=== PATIENT | female | born 1970 | race Caucasian/White ===

== ENCOUNTER 2017-01-08 08:12 | Emergency (ER) | payer BC ==
[~2017-01-08] VITALS: Ht 160 cm; Wt 144.3 kg
[2017-01-08] MEDS ORDERED: FUROSEMIDE20 MG PO (09:40)
[2017-01-08] MEDS ORDERED: LEVOTHYROXINE200 MC1 PO (09:40)
[2017-01-08] MEDS ORDERED: LISINOPRIL-HCT1 EACH PO (09:41)
[2017-01-08] MEDS ORDERED: ROSUVASTATIN CA10 MG PO (09:41)
[2017-01-08 10:36] VITALS: BP 130/82
== END 2017-01-08 10:38 | disposition home or self-care (01) ==
LOC: EME 08:12
DX: S52.124A Nondisplaced fracture of head of right radius, initial encounter for closed fracture (principal); S20.211A Contusion of right front wall of thorax, initial encounter; V48.4XXA Person boarding or alighting a car injured in noncollision transport accident, initial encounter; E78.5 Hyperlipidemia, unspecified; I10 Essential (primary) hypertension; Z87.891 Personal history of nicotine dependence
CPT/HCPCS: 71020; 73060; 99281; 99283

== ENCOUNTER → 2017-06-07 | Outpatient (CLI) | payer BC ==
[~2017-06-07] MED LIST: CRESTOR10 MG PO; FUROSEMIDE20 MG PO; LASIX20 MG PO; LEVOTHYROXINE200 MC1 PO; LISINOPRIL-HCT1 EACH PO; MULTI-VITAMIN-1 EACH PO; ROSUVASTATIN CA10 MG PO; SYNTHROID200 MCG PO; ZESTORETIC 10-1 EAC1 PO
== END | disposition home or self-care (01) ==
LOC: CDC 09:59
DX: Z01.810 Encounter for preprocedural cardiovascular examination (principal); K64.4 Residual hemorrhoidal skin tags
CPT/HCPCS: 93000